=== PATIENT | female | born 1970 | race American Indian/Alaskan Native ===

== ENCOUNTER 2018-06-10 22:39 | Emergency (ER) | payer OTHER ==
[2018-06-10 23:05] VITALS: BP 109/41
--- NOTE | 2018-06-10 23:18 | EDM.PDOC ---
ED HPI GENERAL MEDICAL PROBLEM - General Chief Complaint: Wound Recheck Stated Complaint: SURGERY 1 WEEK AGO, [facility] [id number] Time Seen by Provider: 06/10/18 23:16 Source of Information: Reports: Patient History Limitations: Reports: No Limitations - History of Present Illness INITIAL COMMENTS - FREE TEXT/NARRATIVE: s/p GB surgery last week. doing well till today while vacuuming felt sharp pain in surg site. Treatments DORR OPERATOR: Reports: Acetaminophen, Other Medication(s) Upper Abdominal Pain Score (Numeric/FACES): 4 - Related Data Allergies Allergy/AdvReac Type Severity Reaction Status Date / Time omeprazole [From Prilosec] Allergy Headache Verified 06/10/18 23:00 omeprazole magnesium Allergy Headache Verified 06/10/18 23:00 [From Prilosec] EES Allergy Mild Nausea and Uncoded 06/10/18 23:00 Vomiting Home Meds: Home Meds Levothyroxine Sodium [Synthroid] 125 mcg PO DAILY 03/15/14 [History] Pantoprazole Sodium 40 mg PO BID 03/15/14 [History] Loratadine [Claritin] 10 mg PO DAILY 04/16/14 [History] Cholecalciferol (Vitamin D3) [Vitamin D3] 1,000 units PO DAILY 06/10/18 [History ] Past Medical History - Past Health History Medical/Surgical History: Denies Medical/Surgical History Respiratory History: Reports: Asthma Gastrointestinal History: Reports: GERD, Other (See Below) Other Gastrointestinal History: acid reflux, hx gallbladder problems Genitourinary History: Reports: None DESIGN INSERTER History: Reports: Other (See Below) Other DESIGN INSERTER History: hysterectomy Neurological History: Reports: Migraines Endocrine/Metabolic History: Reports: Obesity/BMI 30+ - Infectious Disease History Infectious Disease History: Reports: Mumps - Past Surgical History Musculoskeletal Surgical History: Reports: Knee Replacement Social & Family History - Family History Family Medical History: Noncontributory - Caffeine Use Caffeine Use: Reports: Coffee, Tea - Living Situation & Occupation Living situation: Reports: with Family Occupation: Employed ED ROS GENERAL - Review of Systems Review Of Systems: ROS reveals no pertinent complaints other than HPI. ED EXAM, SKIN/RASH Exam: See Below Exam Limited By: No Limitations General Appearance: Alert, WD/WN, Mild Distress, Other ([place]) Ears: Hearing Grossly Normal Throat/Mouth: Normal Voice, No Airway Compromise Head: Atraumatic Neck: Non-Tender, Full Range of Motion Respiratory/Chest: No Respiratory Distress Cardiovascular: Regular Rate, Rhythm GI/Abdominal: Tender, Abnormal Bowel Sounds, Other (RUQ tender, no discolouration, BS hyper.). No: Distended, Guarding, Rigid, Rebound Neurological: Alert, Oriented, Normal Cognition, Normal Gait, No Motor/Sensory Deficits Psychiatric: Normal Affect, Normal Mood Skin: Warm, Dry, Normal Color Location, Skin: Abdomen Course - Vital Signs Last Recorded V/S: Last Vital Signs Temp 36.7 C 06/10/18 23:02 Pulse 69 06/10/18 23:02 Resp 18 06/10/18 23:02 BP 109/41 L 06/10/18 23:02 Pulse Ox 98 06/10/18 23:02 - Orders/Labs/Meds Labs: Laboratory Tests 06/10/18 06/10/18 Range/Units 23:20 23:20 WBC 6.5 (5.0-10.0) 10^3/uL RBC 4.45 (4.2-5.4) 10^6/uL Hgb 14.1 (12.0-16.0) g/dL Hct 42.6 (37.0-47.0) % MCV 95.7 (80-100) fL MCH 31.7 (27.0-34.0) pg MCHC 33.1 (33.0-35.0) g/dL Plt Count 239 (150-450) 10^3/uL Neut % (Auto) 44.2 (42.2-75.2) % Lymph % (Auto) 35.0 (20.5-50.1) % [place] % (Auto) 13.6 H (2-8) % Eos % (Auto) 6.9 H (1.0-3.0) % Baso % (Auto) 0.3 (0.0-1.0) % Sodium 140 (135-145) mmol/L Potassium 4.1 (3.6-5.0) mmol/L Chloride 108 (101-111) mmol/L Carbon Dioxide 27.0 (21.0-31.0) mmol/L Anion Gap 9.1 BUN 19 H (7-18) mg/dL Creatinine 0.7 (0.6-1.3) mg/dL Est Cr Clr Drug Dosing 89.40 mL/min Estimated GFR (MDRD) > 60 BUN/Creatinine Ratio 27.14 Glucose 100 (74-105) mg/dL Calcium 9.1 (8.4-10.2) mg/dl Total Bilirubin 0.4 (0.2-1.0) mg/dL AST 19 (10-42) IU/L ALT 20 (10-60) IU/L Alkaline Phosphatase 81 (42-121) IU/L Total Protein 7.1 (6.7-8.2) g/dl Albumin 3.7 (3.2-5.5) g/dl Globulin 3.4 Albumin/Globulin Ratio 1.09 - Re-Assessments/Exams Free Text/Narrative Re-Assessment/Exam: 06/11/18 00:02 results discussed with pt who is feeling ok presently. Departure - Departure Time of Disposition: 00:02 Disposition: Home, Self-Care 01 Condition: Good Clinical Impression: Postoperative periumbilical abdominal pain - Discharge Information Forms: ED Department Discharge Additional Instructions: 1) rest 2) avoid bending lifting straining 3) recheck if there is any change or concern
[2018-06-10 23:55] LABS: ANION GAP 9.1; CHLORIDE,CL 108 mmol/L (101-111); SODIUM,NA 140 mmol/L (135-145)
== END 2018-06-11 00:33 | disposition home or self-care (01) ==
LOC: DL.ED 22:39
DX: G89.18 Other acute postprocedural pain (principal); R10.33 Periumbilical pain; J45.909 Unspecified asthma, uncomplicated; K21.9 Gastro-esophageal reflux disease without esophagitis; Z98.890 Other specified postprocedural states; Z88.8 Allergy status to other drugs, medicaments and biological substances; Z79.899 Other long term (current) drug therapy
CPT/HCPCS: 36415; 80053; 85025; 99283

== ENCOUNTER 2020-03-21 02:34 | Emergency (ER) | payer BC, OTHER ==
[2020-03-21] MEDS ORDERED: Ondansetron 4 MG Tab.DIS PO ONE (02:35)
[2020-03-21] MEDS: Sodium Chloride 0.9% 10 ML Syringe FLUSH PRN (03:03)
--- NOTE | 2020-03-21 03:05 | EDM.PDOC ---
ED HPI GENERAL MEDICAL PROBLEM - General Chief Complaint: General Stated Complaint: 100.4 TEMP, UNABLE TO HOLD ANYTHING DOWN Time Seen by Provider: 03/21/20 03:05 Source of Information: Reports: Patient, RN, RN Notes Reviewed History Limitations: Reports: No Limitations - History of Present Illness INITIAL COMMENTS - FREE TEXT/NARRATIVE: Patient presents to ER with complaint of diarrhea. Patient states on Wednesday she traveled to [place]. She states she did not get out of her vehicle and did drive-through for everything she needed to do. Patient states she ate at [employer] in [place], had a crispies chicken sandwich and a bottle of water. Patient states an hour after eating she states she began having cramping and abdominal pain, felt bloated and began having diarrhea. Patient has been nauseated but no vomiting. States she has tried to eat a salad and some crackers, but unable to eat, and everything goes right through her. Patient states she has used over -the-counter antidiarrheals, but was unable to swallow them as her throat was so dry. Patient admits to having the chills as well as fever. Denies headache , sore throat. Patient states she has had a cough and some allergies recently. Denies any recent illness and any recent antibiotic use. Onset: Sudden Onset Date: 03/26/20 Abdomen Pain Score (Numeric/FACES): 5 - Related Data Allergies Allergy/AdvReac Type Severity Reaction Status Date / Time omeprazole [From Prilosec] Allergy Headache Verified 03/21/20 02:55 omeprazole magnesium Allergy Headache Verified 03/21/20 02:55 [From Prilosec] EES Allergy Mild Nausea and Uncoded 03/21/20 02:55 Vomiting Home Meds: Home Meds Levothyroxine Sodium [Synthroid] 125 mcg PO DAILY 03/15/14 [History] Pantoprazole Sodium 40 mg PO BID 03/15/14 [History] Loratadine [Claritin] 10 mg PO DAILY 04/16/14 [History] Cholecalciferol (Vitamin D3) [Vitamin D3] 1,000 units PO DAILY 06/10/18 [History ] Past Medical History - Past Health History Medical/Surgical History: Denies Medical/Surgical History Respiratory History: Reports: Asthma Gastrointestinal History: Reports: GERD, Other (See Below) Other Gastrointestinal History: acid reflux, hx gallbladder problems Genitourinary History: Reports: None 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 (See Below) 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 CALIBRATION ENGINEER History: hysterectomy Neurological History: Reports: Migraines Endocrine/Metabolic History: Reports: Obesity/BMI 30+ - Infectious Disease History Infectious Disease History: Reports: Mumps - Past Surgical History Musculoskeletal Surgical History: Reports: Knee Replacement Social & Family History - Family History Family Medical History: Noncontributory - Tobacco Use Smoking Status *Q: Never Smoker Second Hand Smoke Exposure: No - Caffeine Use Caffeine Use: Reports: Coffee, Soda - Recreational Drug Use Recreational Drug Use: No - Living Situation & Occupation Living situation: Reports: with Family Occupation: Employed ED ROS GENERAL - Review of Systems Review Of Systems: Comprehensive ROS is negative, except as noted in HPI. ED EXAM, GENERAL - Physical Exam Exam: See Below Exam Limited By: No Limitations General Appearance: Alert, WD/WN, Moderate Distress Eye Exam: Bilateral Eye: EOMI, Normal Inspection Ears: Normal External Exam, Hearing Grossly Normal Nose: Normal Inspection Throat/Mouth: Normal Voice, No Airway Compromise, Other (Dry mucous membranes) Head: Atraumatic, Normocephalic Neck: Normal Inspection, Supple, Non-Tender, Full Range of Motion Respiratory/Chest: No Respiratory Distress, Lungs Clear, Normal Breath Sounds, No Accessory Muscle Use, Chest Non-Tender Cardiovascular: Normal Peripheral Pulses, Regular Rate, Rhythm, No Edema, No Gallop, No JVD, No Murmur, No Rub Peripheral Pulses: 2+: Radial (L), Radial (R) GI/Abdominal: Normal Bowel Sounds, Soft, No Organomegaly, No Distention, Tender (Generalized) (Female) Exam: Deferred Rectal (Female) Exam: Deferred Back Exam: Normal Inspection, Full Range of Motion, NT Extremities: Normal Inspection, Normal Range of Motion, Non-Tender, Normal Capillary Refill, No Pedal Edema Neurological: Alert, Oriented, CN II-XII Intact, Normal Cognition, Normal Gait, Normal Reflexes, No Motor/Sensory Deficits Psychiatric: Normal Affect, Normal Mood Skin Exam: Warm, Dry, Intact, Normal Color, No Rash Lymphatic: No Adenopathy Course - Vital Signs Last Recorded V/S: Last Vital Signs Temp 98.7 F 03/21/20 02:41 Pulse 101 H 03/21/20 02:41 Resp 19 03/21/20 02:41 BP 102/70 03/21/20 02:41 Pulse Ox 98 03/21/20 02:41 - Orders/Labs/Meds Orders: Active Orders 24 hr Category Date Time Status Peripheral IV Care [RC] . DIRECTED Care 03/21/20 03:04 Active Sodium Chloride 0.9% [Saline Flush] Med 03/21/20 03:03 Active 10 ml FLUSH ASDIRECTED PRN Peripheral IV Insertion Adult [OM.PC] Stat Oth 03/21/20 03:03 Ordered Medication Orders Sodium Chloride (Saline Flush) 10 ml FLUSH ASDIRECTED PRN PRN Reason: Keep Vein Open Last Admin: 03/21/20 03:03 Dose: 10 ml Labs: Laboratory Tests 03/21/20 03/21/20 03/21/20 Range/Units 02:39 03:03 03:03 WBC 7.2 (5.0-10.0) 10^3/uL RBC 4.91 (4.2-5.4) 10^6/uL Hgb 15.9 D (12.0-16.0) g/dL Hct 46.8 (37.0-47.0) % MCV 95.3 (80-100) fL MCH 32.4 (27.0-34.0) pg MCHC 34.0 (33.0-35.0) g/dL Plt Count 245 (150-450) 10^3/uL Neut % (Auto) 81.0 H (42.2-75.2) % Lymph % (Auto) 10.2 L (20.5-50.1) % [place] % (Auto) 7.8 (2-8) % Eos % (Auto) 0.7 L (1.0-3.0) % Baso % (Auto) 0.3 (0.0-1.0) % Sodium 138 (136-145) mmol/L Potassium 3.7 (3.5-5.1) mmol/L Chloride 103 (98-107) mmol/L Carbon Dioxide 26 (21-32) mmol/L Anion Gap 12.7 (7-13) mEq/L BUN 12 (7-18) mg/dL Creatinine 0.99 (0.55-1.02) mg/dL Est Cr Clr Drug Dosing 61.85 mL/min Estimated GFR (MDRD) 60 BUN/Creatinine Ratio 12.1 (No establ ref range) Glucose 101 H (74-99) mg/dL Calcium 7.9 L (8.5-10.1) mg/dL Total Bilirubin 0.3 (0.2-1.0) mg/dL AST 23 (15-37) U/L ALT 26 (14-59) U/L Alkaline Phosphatase 73 (46-116) U/L Total Protein 7.0 (6.4-8.2) g/dL Albumin 3.4 (3.4-5.0) g/dL Globulin 3.6 Albumin/Globulin Ratio 0.9 Urine Color Yellow (YELLOW) Urine Appearance Clear (CLEAR) Urine pH 5.5 (5.0-9.0) Ur Specific [place] >= 1.030 (1.005-1.030) Urine Protein Negative (NEGATIVE) Urine Glucose (UA) Negative (NEGATIVE) Urine Ketones 15 H (NEGATIVE) Urine Occult Blood Negative (NEGATIVE) Urine Nitrite Negative (NEGATIVE) Urine Bilirubin Negative (NEGATIVE) Urine Urobilinogen 0.2 (0.2-1.0) mg/dL Ur Leukocyte Esterase Negative (NEGATIVE) Meds: Medications Generic Name Dose Route Start Last Admin Trade Name Freq PRN Reason Stop Dose Admin Sodium Chloride 10 ml 03/21/20 03:03 03/21/20 03:03 Saline Flush FLUSH 10 ml ASDIRECTED PRN Administration Keep Vein Open Discontinued Medications Generic Name Dose Route Start Last Admin Trade Name Freq PRN Reason Stop Dose Admin Sodium Chloride 1,000 mls @ 999 mls/hr 03/21/20 03:05 03/21/20 03:14 Normal Saline IV 03/21/20 04:05 999 mls/hr .BOLUS ONE Administration Ondansetron HCl 4 mg 03/21/20 03:05 03/21/20 03:12 Zofran IV 03/21/20 03:06 4 mg ONETIME ONE Administration - Re-Assessments/Exams Free Text/Narrative Re-Assessment/Exam: 03/21/20 04:11 Patient states nausea and abdominal cramping is improved. Patient had 1 diarrhea stool while giving urine sample. Has not had any further stools since she has been here. Departure - Departure Time of Disposition: 04:12 Disposition: Home, Self-Care 01 Condition: Fair Clinical Impression: Gastroenteritis - Discharge Information *PRESCRIPTION DRUG MONITORING PROGRAM REVIEWED*: No *COPY OF PRESCRIPTION DRUG MONITORING REPORT IN PATIENT NICOLE: No Instructions: Viral Gastroenteritis, Adult, [id number], Food Choices to Help Relieve Diarrhea, Adult Forms: ED Department Discharge Additional Instructions: RX: Zofran Stay hydrated, drink plenty of water May use over the counter anti-diarrheal as directed Follow up with your primary care facility if diarrhea continues Sepsis Event Note - Evaluation Sepsis Screening Result: No Definite Risk - Focused Exam Vital Signs: Vital Signs Temp Pulse Resp BP Pulse Ox 03/21/20 02:41 98.7 F 101 H 19 102/70 98 Date Exam was Performed: 03/21/20 Time Exam was Performed: 04:11 - My Orders Last 24 Hours: My Active Orders 03/21/20 03:03 Sodium Chloride 0.9% [Saline Flush] 10 ml FLUSH ASDIRECTED PRN Peripheral IV Insertion Adult [OM.PC] Stat 03/21/20 03:04 Peripheral IV Care [RC] . DIRECTED - Assessment/Plan Last 24 Hours: My Active Orders 03/21/20 03:03 Sodium Chloride 0.9% [Saline Flush] 10 ml FLUSH ASDIRECTED PRN Peripheral IV Insertion Adult [OM.PC] Stat 03/21/20 03:04 Peripheral IV Care [RC] . DIRECTED
[2020-03-21] MEDS: Ondansetron 4 MG/2 ML SDV IV ONE (03:12)
[2020-03-21] MEDS: Sodium Chloride 0.9% 1,000 ML IV ONE (03:14)
[2020-03-21 03:37] LABS: ANION GAP 12.7 mEq/L (7-13)
[2020-03-21 04:15] VITALS: BP 117/70; PULSE 85
[2020-03-21] MEDS: Ondansetron 4 MG Tab.DIS ONE (04:16)
== END 2020-03-21 04:20 | disposition home or self-care (01) ==
LOC: DL.ED 02:34
DX: K52.9 Noninfective gastroenteritis and colitis, unspecified (principal); K21.9 Gastro-esophageal reflux disease without esophagitis; E66.9 Obesity, unspecified; Z91.048 Other nonmedicinal substance allergy status; Z79.899 Other long term (current) drug therapy; Z68.38 Body mass index [BMI] 38.0-38.9, adult
CPT/HCPCS: 36415; 80053; 81003; 85025; 96361; 96374; 99284; A9270; J2405; J7030

== ENCOUNTER 2020-12-25 20:45 | Emergency (ER) | payer BC, OTHER ==
[2020-12-25 21:15] VITALS: BP 117/61; PULSE 85
--- NOTE | 2020-12-25 21:44 | CR ---
PROCEDURE INFORMATION: Exam: XR Right Ankle Exam date and time: 12/25/2020 9:26 PM Age: 50 years old Clinical indication: Injury or trauma; Other: Rolled ankle; Sprain or strain; Right; Additional info: Rolled ankle at 2014 TECHNIQUE: Imaging protocol: XR Right ankle. Views: 3 or more views. COMPARISON: No relevant prior studies available. FINDINGS: Bones/joints: There is no evidence of acute fracture. There is no subluxation or dislocation. Talar dome smooth. Mortise preserved. There is a moderate spur at the plantar aponeurosis insertion upon the calcaneus. Soft tissues: Diffuse soft tissue swelling noted. IMPRESSION: There is no evidence of acute fracture.
--- NOTE | 2020-12-25 21:58 | EDM.PDOC ---
ED HPI GENERAL MEDICAL PROBLEM - General Chief Complaint: Lower Extremity Injury/Pain Stated Complaint: TWISTED RIGHT ANKLE Time Seen by Provider: 12/25/20 21:58 Source of Information: Reports: Patient, RN, RN Notes Reviewed History Limitations: Reports: No Limitations - History of Present Illness INITIAL COMMENTS - FREE TEXT/NARRATIVE: Patient presents to the ED via personal vehicle with complaints of right ankle pain. The patient reports she "rolled" her ankle inward while walking across her yard approximately two hours ago. She did not fall onto the joint and denies numbness or tingling distal to the pain. She voiced concerns regarding fracture or dislocation given the swelling to the lateral aspect of her ankle. She denies history of injury to the affected joint. She attest to pain with dorsi and plantar flexion but is able to perform both movements. She denies loss of sensory function to the extremity. The patient states she has not taken any pain medications for this problem. Right Ankle Pain Score (Numeric/FACES): 6 - Related Data Allergies Allergy/AdvReac Type Severity Reaction Status Date / Time omeprazole [From Prilosec] Allergy Headache Verified 12/25/20 21:15 omeprazole magnesium Allergy Headache Verified 12/25/20 21:15 [From Prilosec] EES Allergy Mild Nausea and Uncoded 12/25/20 21:15 Vomiting Home Meds: Home Meds Levothyroxine Sodium [Synthroid] 125 mcg PO DAILY 03/15/14 [History] Pantoprazole Sodium 40 mg PO BID 03/15/14 [History] Loratadine [Claritin] 10 mg PO DAILY 04/16/14 [History] Cholecalciferol (Vitamin D3) [Vitamin D3] 1,000 units PO DAILY 06/10/18 [History] Past Medical History - Past Health History Medical/Surgical History: Denies Medical/Surgical History Respiratory History: Reports: Asthma Gastrointestinal History: Reports: GERD, Other (See Below) Other Gastrointestinal History: acid reflux, hx gallbladder problems Genitourinary History: Reports: None MEDICAL LIAISON History: Reports: Other (See Below) Other MEDICAL LIAISON History: hysterectomy Neurological History: Reports: Migraines Endocrine/Metabolic History: Reports: Obesity/BMI 30+ - Infectious Disease History Infectious Disease History: Reports: Mumps - Past Surgical History GI Surgical History: Reports: Appendectomy, Cholecystectomy Female Surgical History: Reports: Hysterectomy Musculoskeletal Surgical History: Reports: Knee Replacement Other Musculoskeletal Surgeries/Procedures:: x2 Social & Family History - Family History Family Medical History: No Pertinent Family History - Tobacco Use Tobacco Use Status *Q: Never Tobacco User Second Hand Smoke Exposure: No - Caffeine Use Caffeine Use: Reports: Coffee, Soda - Recreational Drug Use Recreational Drug Use: No - Living Situation & Occupation Living situation: Reports: with Family Occupation: Employed Review of Systems - Review of Systems Review Of Systems: Comprehensive ROS is negative, except as noted in HPI. ED EXAM, GENERAL - Physical Exam Exam: See Below Exam Limited By: No Limitations General Appearance: Alert, No Apparent Distress Eye Exam: Bilateral Eye: EOMI, Normal Inspection, PERRL (3mm) Throat/Mouth: Normal Inspection, Normal Voice, No Airway Compromise Head: Atraumatic, Normocephalic Respiratory/Chest: No Respiratory Distress, Lungs Clear, Normal Breath Sounds, No Accessory Muscle Use, Chest Non-Tender Cardiovascular: Normal Peripheral Pulses, Regular Rate, Rhythm, No Edema, No Gallop, No JVD, No Murmur, No Rub Peripheral Pulses: 1+: Posterior Tibial (L), Posterior Tibial (R), 2+: Radial (L), Radial (R), Dorsalis Pedis (L), Dorsalis Pedis (R) Extremities: Normal Capillary Refill, Joint Swelling (To right lateral ankle), Leg Pain (To right lateral ankle), Limited Range of Motion (To right ankle; Pain with dorsiflexion and plantar flexion). No: Mottled, Pallor, Redness Neurological: Alert, Oriented, CN II-XII Intact, Normal Cognition, Normal Reflexes, No Motor/Sensory Deficits, Abnormal Gait (Limping gait d/t minimal weightbearing to RLE) Psychiatric: Normal Affect, Normal Mood Skin Exam: Warm, Dry, Intact, Ecchymosis (Faint to lateral aspect of right ankle), Increased Warmth (To right lateral ankle), Other (Swelling to right lateral ankle). No: Erythema, Jaundice, Mottled, Pallor, Petechiae Course - Vital Signs Last Recorded V/S: Last Vital Signs Temp 97.9 F 12/25/20 21:10 Pulse 85 12/25/20 21:10 Resp 18 12/25/20 21:10 BP 117/61 12/25/20 21:10 Pulse Ox 97 12/25/20 21:10 - Radiology Interpretation Free Text/Narrative:: [facility] [place] [facility] Final Radiology Report Call: [phone] assistance Online chat: [email or web address] Name: MARCO ORELLANA Age: 50Years F Date: 12/25/2020 SSN: -- : 1970 Study: CR ANKLE MIN 3V RT Requesting Physician: Bessie Willis Images: 3 Addl Studies: Provided Clinical History: rolled ankle at 2014 Contrast: Contrast Medium: Contrast Amount: Contrast Method: CONFIDENTIALITY STATEMENT This report is intended only for use by the referring physician, and only in accordance with law. If you received this in error, call [phone]. Page 1 of 1 PROCEDURE INFORMATION: Exam: XR Right Ankle Exam date and time: 12/25/2020 9:26 PM Age: 50 years old Clinical indication: Injury or trauma; Other: Rolled ankle; Sprain or strain; Right; Additional info: Rolled ankle at 2014 TECHNIQUE: Imaging protocol: XR Right ankle. Views: 3 or more views. COMPARISON: No relevant prior studies available. FINDINGS: Bones/joints: There is no evidence of acute fracture. There is no subluxation or dislocation. Talar dome smooth. Mortise preserved. There is a moderate spur at the plantar aponeurosis insertion upon the calcaneus. Soft tissues: Diffuse soft tissue swelling noted. IMPRESSION: There is no evidence of acute fracture. Thank you for allowing us to participate in the care of your patient. Dictated and Authenticated by: Cosme Pavon MD 12/25/2020 9:43 PM Central Time ([place] & [place]) - Re-Assessments/Exams Free Text/Narrative Re-Assessment/Exam: 12/25/20 Xray of ankle unremarkable for acute processes; no evidence of fracture or dislocation. Discussed findings of examination and imaging with patient. Discussed supportive cares as well as red flag signs and symptoms which would warrant reevaluation. Patient verbalized understanding and agreement with the plan of care. Departure - Departure Time of Disposition: 22:21 Disposition: Home, Self-Care 01 Condition: Good Clinical Impression: Bone spur of foot Ankle strain Qualifiers: Encounter type: initial encounter Laterality: right Qualified Code(s): S96.911A - Strain of unspecified muscle and tendon at ankle and foot level, right foot, initial encounter - Discharge Information *PRESCRIPTION DRUG MONITORING PROGRAM REVIEWED*: Not Applicable *COPY OF PRESCRIPTION DRUG MONITORING REPORT IN PATIENT NICOLE: Not Applicable Instructions: Muscle Strain, [id number] Referrals: Consuelo Chen, STEAM HAMMER OPERATOR [Primary Care Provider] - Forms: ED Department Discharge Additional Instructions: 1.) You may take ibuprofen (Advil/Motrin) 400mg ever six hours, as pain and swelling persist. You may also take acetaminophen (Tylenol) 650mg every six hours, as pain persists. You may stagger these medications so you are taking a dose every three hours. 2.) Apply ice to the affected area for comfort, as pain and swelling persist. 3.) Elevate the ankle for comfort to alleviate swelling. 4.) Follow up with your primary care provider if pain does not improve, or worsens, in the next 5-7 days. Sepsis Event Note (ED) - Evaluation Sepsis Screening Result: No Definite Risk - Focused Exam Vital Signs: Vital Signs Temp Pulse Resp BP Pulse Ox 12/25/20 21:10 97.9 F 85 18 117/61 97
== END 2020-12-25 22:35 | disposition home or self-care (01) ==
LOC: DL.ED 20:45
DX: S96.911A Strain of unspecified muscle and tendon at ankle and foot level, right foot, initial encounter (principal); M77.31 Calcaneal spur, right foot; J45.909 Unspecified asthma, uncomplicated; K21.9 Gastro-esophageal reflux disease without esophagitis; E66.9 Obesity, unspecified; Z88.8 Allergy status to other drugs, medicaments and biological substances; X58.XXXA Exposure to other specified factors, initial encounter
CPT/HCPCS: 73610-RT; 99283

== ENCOUNTER 2021-08-16 10:35 | Emergency (ER) | payer BC, OTHER ==
[2021-08-16 10:50] VITALS: BP 127/77; PULSE 99
--- NOTE | 2021-08-16 10:55 | EDM.PDOC ---
Scribed by Jeri Jordan 08/16/21 1055 for Petty Winslow MD ED HPI GENERAL MEDICAL PROBLEM - General Chief Complaint: Skin Complaint Stated Complaint: [id number] HAD SURGERY ON WEDNESDAY INSCION LEAKING Time Seen by Provider: 08/16/21 10:45 Source of Information: Reports: Patient, RN, RN Notes Reviewed History Limitations: Reports: No Limitations - History of Present Illness INITIAL COMMENTS - FREE TEXT/NARRATIVE: Patient is here for bleeding from her incision. She had a gastric bypass 5 days ago. She noted the procedure went well secondary to the Heparin that she was on. She is no longer on any blood thinner. She notes there is no more pain than normal or increased redness. She has started to have bloody discharge from her left incision. She was told if there are any changes to come to the ER, so she is here. Severity: Moderate - Related Data Allergies Allergy/AdvReac Type Severity Reaction Status Date / Time omeprazole [From Prilosec] Allergy Headache Verified 08/16/21 10:43 omeprazole magnesium Allergy Headache Verified 08/16/21 10:43 [From Prilosec] EES Allergy Mild Nausea and Uncoded 08/16/21 10:43 Vomiting Home Meds: Home Meds Levothyroxine Sodium [Synthroid] 125 mcg PO DAILY 03/15/14 [History] Pantoprazole Sodium 40 mg PO BID 03/15/14 [History] Loratadine [Claritin] 10 mg PO DAILY 04/16/14 [History] Cholecalciferol (Vitamin D3) [Vitamin D3] 1,000 units PO DAILY 06/10/18 [History] Past Medical History - Past Health History Medical/Surgical History: Denies Medical/Surgical History Respiratory History: Reports: Asthma Gastrointestinal History: Reports: GERD, Other (See Below) Other Gastrointestinal History: acid reflux, hx gallbladder problems Genitourinary History: Reports: None PAIN MANAGEMENT PHYSICIAN History: Reports: Other (See Below) Other PAIN MANAGEMENT PHYSICIAN History: hysterectomy Neurological History: Reports: Migraines Endocrine/Metabolic History: Reports: Obesity/BMI 30+ - Infectious Disease History Infectious Disease History: Reports: Mumps - Past Surgical History GI Surgical History: Reports: Appendectomy, Cholecystectomy Female Surgical History: Reports: Hysterectomy Musculoskeletal Surgical History: Reports: Knee Replacement Other Musculoskeletal Surgeries/Procedures:: x2 Social & Family History - Family History Family Medical History: No Pertinent Family History - Caffeine Use Caffeine Use: Reports: Coffee, Soda - Living Situation & Occupation Living situation: Reports: with Family Occupation: Employed ED ROS GENERAL - Review of Systems Review Of Systems: Comprehensive ROS is negative, except as noted in HPI. ED EXAM, SKIN/RASH Exam: See Below Exam Limited By: No Limitations General Appearance: Alert, WD/WN, No Apparent Distress Eye Exam: Bilateral Eye: EOMI, Normal Inspection, PERRL Ears: Normal External Exam, Normal Canal, Hearing Grossly Normal, Normal TMs Nose: Normal Inspection, Normal Mucosa, No Blood Throat/Mouth: Normal Inspection, Normal Lips, Normal Teeth, Normal Gums, Normal Oropharynx, Normal Voice, No Airway Compromise Head: Atraumatic, Normocephalic Neck: Normal Inspection, Supple, Non-Tender, Full Range of Motion Respiratory/Chest: No Respiratory Distress, Lungs Clear, Normal Breath Sounds, No Accessory Muscle Use, Chest Non-Tender Cardiovascular: Normal Peripheral Pulses, Regular Rate, Rhythm, No Edema, No Gallop, No JVD, No Murmur, No Rub GI/Abdominal: Soft, No Distention, Tender (to palpation over ecchymosis. ). No: Guarding, Rebound (Female) Exam: Deferred Rectal (Female) Exam: Deferred Back Exam: Normal Inspection, Full Range of Motion, NT Extremities: Normal Inspection Neurological: Alert, Oriented, CN II-XII Intact, Normal Cognition, Normal Gait, Normal Reflexes, No Motor/Sensory Deficits Psychiatric: Normal Affect, Normal Mood Skin: Other (surigcal incision healing well. Small area of bloody discharge on medial aspect of left upper quadrant incision. Stopped with 50 seconds of presure. ) ED SKIN PROCEDURES - Laceration/Wound Repair Left Upper Abdomen Appearance: Superficial Distal NVT: Neuro & Vascular Intact Closed with: Dermabond Lac/Wound length In cm: 1.5 Course - Vital Signs Last Recorded V/S: Last Vital Signs Temp 99.9 F 08/16/21 10:43 Pulse 99 08/16/21 10:43 Resp 16 08/16/21 10:43 BP 127/77 08/16/21 10:43 Pulse Ox 96 08/16/21 10:43 Departure - Departure Time of Disposition: 10:54 Disposition: Home, Self-Care 01 Condition: Good Clinical Impression: Postoperative bleeding from incision - Discharge Information *PRESCRIPTION DRUG MONITORING PROGRAM REVIEWED*: Not Applicable *COPY OF PRESCRIPTION DRUG MONITORING REPORT IN PATIENT NICOLE: Not Applicable Forms: ED Department Discharge Additional Instructions: If area becomes increasingly red or painful, return to ER. Sepsis Event Note (ED) - Focused Exam Vital Signs: Vital Signs Temp Pulse Resp BP Pulse Ox 08/16/21 10:43 99.9 F 99 16 127/77 96 I have read and agree with the documentation that has been completed regarding t his visit. By signing this record, I attest that the documentation was completed in my physical presence and is an accurate record of the encounter.
== END 2021-08-16 10:59 | disposition home or self-care (01) ==
LOC: DL.ED 10:35
DX: K91.840 Postprocedural hemorrhage of a digestive system organ or structure following a digestive system procedure (principal); S31.111A Laceration without foreign body of abdominal wall, left upper quadrant without penetration into peritoneal cavity, initial encounter; E66.9 Obesity, unspecified; Z88.1 Allergy status to other antibiotic agents; Z88.8 Allergy status to other drugs, medicaments and biological substances; Z90.49 Acquired absence of other specified parts of digestive tract; Z68.41 Body mass index [BMI] 40.0-44.9, adult; W26.8XXA Contact with other sharp object(s), not elsewhere classified, initial encounter
CPT/HCPCS: 12001; 99283-25

== ENCOUNTER 2021-09-12 19:50 | Emergency (ER) | payer BC, OTHER | END 2021-09-12 21:45 | disposition left against medical advice (07) | LOC: DL.ED 19:50 | DX: Z53.21 Procedure and treatment not carried out due to patient leaving prior to being seen by health care provider (principal) ==

== ENCOUNTER 2021-10-19 14:44 | Emergency (ER) | payer BC, OTHER | END 2021-10-19 15:11 | LOC: DL.ED 14:44 | DX: Z53.21 Procedure and treatment not carried out due to patient leaving prior to being seen by health care provider (principal) ==

== ENCOUNTER 2021-11-23 06:00 | Emergency (ER) | payer BC, OTHER ==
[2021-11-23 06:14] VITALS: BP 118/73
[2021-11-23] MEDS ORDERED: Morphine 2 MG/ML SYRINGE IVPUSH ONE (06:19)
[2021-11-23] MEDS ORDERED: Sodium Chloride 0.9% 1,000 ML IV ONE (06:19)
[2021-11-23] MEDS ORDERED: Ondansetron 4 MG/2 ML SDV IVPUSH ONE (06:32)
[2021-11-23] MEDS ORDERED: Ondansetron 4 MG/2 ML SDV ONE (06:33)
[2021-11-23 06:44] VITALS: PULSE 50
[2021-11-23 06:51] LABS: CHLORIDE,CL 108 mmol/L (98-107); SODIUM,NA 142 mmol/L (136-145)
[2021-11-23 07:22] LABS: AMPHETAMINES,URINE NEGATIVE (NEGATIVE); BARBITURATES,URINE NEGATIVE (NEGATIVE); BENZODIAZEPINE,URINE NEGATIVE (NEGATIVE); MDMA (ECSTASY), URINE NEGATIVE (NEGATIVE); METHADONE,URINE NEGATIVE (NEGATIVE); METHAMPHETAMINES,URINE NEGATIVE (NEGATIVE); OPIATES,URINE POSITIVE (NEGATIVE); OXYCODONE,URINE NEGATIVE (NEGATIVE); PHENCYCLIDINE,URINE NEGATIVE (NEGATIVE); TCA,URINE NEGATIVE (NEGATIVE)
== END 2021-11-23 08:04 | disposition home or self-care (01) ==
LOC: DL.ED 06:00
DX: N20.0 Calculus of kidney (principal); J45.909 Unspecified asthma, uncomplicated; K21.9 Gastro-esophageal reflux disease without esophagitis; E66.9 Obesity, unspecified; Z68.33 Body mass index [BMI] 33.0-33.9, adult; Z88.1 Allergy status to other antibiotic agents; Z88.8 Allergy status to other drugs, medicaments and biological substances; Z79.899 Other long term (current) drug therapy
CPT/HCPCS: 36415; 74176; 80053; 80305; 81001; 85025; 96374; 96375; 99284; J2270; J2405; J7030

== ENCOUNTER 2022-05-09 10:51 | Emergency (ER) | payer BC, OTHER ==
[2022-05-09 11:23] VITALS: BP 106/79; PULSE 67
[2022-05-09] MEDS ORDERED: Ketorolac 30 MG/ML SDV IM ONE (12:19)
[2022-05-09] MEDS ORDERED: Orphenadrine 60 MG/2 ML Inj IM ONE (12:19)
== END 2022-05-09 12:34 | disposition home or self-care (01) ==
LOC: DL.ED 10:51
DX: S46.911A Strain of unspecified muscle, fascia and tendon at shoulder and upper arm level, right arm, initial encounter (principal); K21.9 Gastro-esophageal reflux disease without esophagitis; E66.9 Obesity, unspecified; Z68.30 Body mass index [BMI] 30.0-30.9, adult; Z88.1 Allergy status to other antibiotic agents; Z88.8 Allergy status to other drugs, medicaments and biological substances; Z79.899 Other long term (current) drug therapy; Z90.49 Acquired absence of other specified parts of digestive tract; Z90.710 Acquired absence of both cervix and uterus; X50.0XXA Overexertion from strenuous movement or load, initial encounter
CPT/HCPCS: 73200; 96372; 99283; J1885; J2360

== ENCOUNTER 2023-05-26 05:15 | Emergency (ER) | payer BC, OTHER ==
[2023-05-26] MEDS ORDERED: Ketorolac 30 MG/ML SDV IVPUSH ONE (05:33)
[2023-05-26] MEDS ORDERED: Ondansetron 4 MG/2 ML SDV IVPUSH ONE (05:33)
[2023-05-26] MEDS ORDERED: Tamsulosin 0.4 MG Cap.ER PO ONE (05:34)
[2023-05-26 05:39] LABS: BASOPHILS PERCENT AUTO 0.4 % (0.0-1.0); HEMATOCRIT 44.5 % (37.0-47.0); HEMOGLOBIN 14.8 g/dL (12.0-16.0); LYMPHOCYTES PERCENT AUTO 43.5 % (20.5-50.1); MEAN CORPUSCULAR HEMOGLOBIN 31.8 pg (27.0-34.0); MEAN CORPUSCULAR HGB CONC 33.3 g/dL (33.0-35.0); MEAN CORPUSCULAR VOLUME 95.7 fL (80-100); MONOCYTES PERCENT AUTO 9.8 % (2-8); NEUTROPHILS PERCENT AUTO 41.3 % (42.2-75.2); PLATELET COUNT,PLT 242 10^3/uL (150-450); RED BLOOD CELL COUNT 4.65 10^6/uL (4.2-5.4); WHITE BLOOD CELL COUNT,WBC 5.2 10^3/uL (5.0-10.0)
[2023-05-26 05:50] VITALS: BP 136/110; PULSE 86
[2023-05-26 05:54] LABS: ALANINE AMINOTRANSFERASE,ALT 22 U/L (14-59); ALBUMIN 3.8 g/dL (3.4-5.0); ALKALINE PHOSPHATASE 90 U/L (46-116); ASPARTATE AMNIOTRANSFERASE,AST 19 U/L (15-37); BILIRUBIN TOTAL 0.4 mg/dL (0.2-1.0); BLOOD UREA NITROGEN,BUN 16 mg/dL (7-18); BUN/CREATININE RATIO 16.3 (No establ ref range); CALCIUM 9.6 mg/dL (8.5-10.1); CARBON DIOXIDE,CO2 31 mmol/L (21-32); CHLORIDE,CL 104 mmol/L (98-107); CREATININE 0.98 mg/dL (0.55-1.02); EST CRCL DRUG DOSING (CG) 62.86 mL/min; GLUCOSE RANDOM 96 mg/dL (70-99); LIPASE 123 U/L (73-393); PROTEIN TOTAL,TP 7.5 g/dL (6.4-8.2); SODIUM,NA 143 mmol/L (136-145)
[2023-05-26 06:02] LABS: C-REACTIVE PROTEIN < 0.2 mg/dL (0.0-0.9); ESTIMATED GFR 69 mL/min (>=60); ETHANOL BLOOD MEDICAL < 3 mg/dL (0)
[2023-05-26] MEDS ORDERED: Sodium Chloride 0.9% 1,000 ML IV ONE (06:08)
[2023-05-26 06:43] LABS: APPEARANCE,URINE CLEAR (CLEAR); BILIRUBIN,URINE NEGATIVE (NEGATIVE); COLOR,URINE YELLOW (YELLOW); GLUCOSE,URINE NEGATIVE (NEGATIVE); KETONES,URINE NEGATIVE (NEGATIVE); LEUKOCYTE ESTERASE,URINE NEGATIVE (NEGATIVE); NITRITE,URINE NEGATIVE (NEGATIVE); OCCULT BLOOD,URINE SMALL (NEGATIVE); PH,URINE 5.5 (5.0-9.0); PROTEIN,URINE NEGATIVE (NEGATIVE); UROBILINOGEN,URINE 0.2 mg/dL (0.2-1.0)
[2023-05-26 06:48] LABS: AMPHETAMINES,URINE NEGATIVE (NEGATIVE); BARBITURATES,URINE NEGATIVE (NEGATIVE); BENZODIAZEPINE,URINE NEGATIVE (NEGATIVE); MDMA (ECSTASY), URINE NEGATIVE (NEGATIVE); METHADONE,URINE NEGATIVE (NEGATIVE); METHAMPHETAMINES,URINE NEGATIVE (NEGATIVE); OPIATES,URINE NEGATIVE (NEGATIVE); OXYCODONE,URINE NEGATIVE (NEGATIVE); PHENCYCLIDINE,URINE NEGATIVE (NEGATIVE); TCA,URINE NEGATIVE (NEGATIVE)
[2023-05-26 06:51] LABS: AMORPHOUS SEDIMENT,URINE FEW /HPF (NOT SEEN); BACTERIA,URINE RARE /HPF (0-FEW/HPF); EPITHELIAL CELLS,URINE MODERATE /HPF (NOT SEEN); MUCUS,URINE MODERATE /LPF (NOT SEEN); WBC,URINE 0-5 /HPF (0-5/HPF)
[2023-05-26 06:52] LABS: CALCIUM OXALATE CRYSTALS,URINE FEW /HPF (NOT SEEN)
== END 2023-05-26 07:13 | disposition home or self-care (01) ==
LOC: DL.ED 05:15
DX: N20.0 Calculus of kidney (principal); J45.909 Unspecified asthma, uncomplicated; K21.9 Gastro-esophageal reflux disease without esophagitis; E66.9 Obesity, unspecified; Z88.1 Allergy status to other antibiotic agents; Z88.8 Allergy status to other drugs, medicaments and biological substances; Z79.899 Other long term (current) drug therapy; Z68.31 Body mass index [BMI] 31.0-31.9, adult
CPT/HCPCS: 36415; 80053; 80305-QW; 80307; 81001; 83605; 83690; 85025; 86140; 96374; 96375; 99284; 99284-25; A9270-GY; J1885; J2405; J7030

== ENCOUNTER 2023-07-28 07:38 | Day surgery (SDC) | payer BC, OTHER ==
[2023-07-28] MEDS ORDERED: Tropicamide 1% Ophth Soln 15 ML Bottle EYELF ONE (08:30)
[2023-07-28] MEDS ORDERED: Phenylephrine 10% Ophth Soln 5 ML Bot EYELF PRN (08:30)
[2023-07-28] MEDS ORDERED: Cataract Ophth Solution EYELF ONE (08:30)
[2023-07-28] MEDS ORDERED: Povidone-Iodine 5% Sterile Ophth Soln 30 ML Bottle EYELF ONE ×2 (08:30→09:02)
[2023-07-28] MEDS ORDERED: Proparacaine 0.5% Ophth Soln 15 ML Bottle EYELF ONE ×2 (08:30→09:02)
[2023-07-28] MEDS ORDERED: Moxifloxacin 0.5% Ophth Soln 3 ML Bottle EYELF ONE (08:30)
[2023-07-28] MEDS ORDERED: Timolol Maleate 0.5% Ophth Soln 5 ML Bottle EYELF ONE (08:30)
[2023-07-28] MEDS ORDERED: Vancomycin 500 MG SDV EYELF ONE (09:02)
[2023-07-28] MEDS ORDERED: Apraclonidine 0.5% Ophth Soln 5 ML Bot EYELF ONE (09:02)
[2023-07-28] MEDS ORDERED: Balanced Salt Solution Ophth Irrig 500 ML Bottle IOCULAR ONE (09:02)
[2023-07-28] MEDS ORDERED: Diclofenac Sodium 0.1% Ophth Soln 5 ML Bottle EYELF ONE (09:02)
[2023-07-28] MEDS ORDERED: Lidocaine 1% 30 ML SDV INJECT ONE (09:02)
[2023-07-28] MEDS ORDERED: Chondroitin Sulfate/Hyaluronate Sodium Ophth Inj 0.75 ML Syringe EYELF ONE (09:02)
[2023-07-28] MEDS ORDERED: Tobramycin 0.3% Ophth Oint 3.5 GM Tube EYELF ONE (09:02)
[2023-07-28] MEDS ORDERED: Acetaminophen/Codeine 300-30 MG Tab PO PRN (09:30)
[2023-07-28] MEDS ORDERED: Ondansetron 4 MG/2 ML SDV IVPUSH PRN (09:30)
[2023-07-28] MEDS ORDERED: Acetaminophen 325 MG Tab PO PRN (09:30)
[2023-07-28 10:26] VITALS: BP 98/60; PULSE 47
== END 2023-07-28 10:05 | disposition home or self-care (01) ==
LOC: DL.SDS 07:38
PROVIDERS: ATTEND Ophthalmology
DX: H25.813 Combined forms of age-related cataract, bilateral (principal); E03.9 Hypothyroidism, unspecified; E16.2 Hypoglycemia, unspecified; K21.9 Gastro-esophageal reflux disease without esophagitis; Z98.84 Bariatric surgery status; Z88.8 Allergy status to other drugs, medicaments and biological substances
CPT/HCPCS: 66984; A9270; J3370; J3490

== ENCOUNTER → 2023-08-11 | Day surgery (SDC) | payer BC, OTHER ==
[~2023-08-11] MED LIST: Acetaminophen 325 MG Tab PO PRN; Acetaminophen/Codeine 300-30 MG Tab PO PRN; Apraclonidine 0.5% Ophth Soln 5 ML Bot EYERT ONE; Balanced Salt Solution Ophth Irrig 500 ML Bottle IOCULAR ONE; Cataract Ophth Solution EYERT ONE; Chondroitin Sulfate/Hyaluronate Sodium Ophth Inj 0.75 ML Syringe EYERT ONE; Dexamethasone/Neomycin/Polymyxin B Ophth Oint 3.5 GM Tube EYERT ONE; Diclofenac Sodium 0.1% Ophth Soln 5 ML Bottle EYERT ONE; Lidocaine 1% 30 ML SDV ONE; Moxifloxacin 0.5% Ophth Soln 3 ML Bottle EYERT ONE; Ondansetron 4 MG/2 ML SDV IVPUSH PRN; Phenylephrine 10% Ophth Soln 5 ML Bot EYERT PRN; Povidone-Iodine 5% Sterile Ophth Soln 30 ML Bottle EYERT ONE; Proparacaine 0.5% Ophth Soln 15 ML Bottle EYERT ONE; Timolol Maleate 0.5% Ophth Soln 5 ML Bottle EYERT ONE; Tropicamide 1% Ophth Soln 15 ML Bottle EYERT ONE; Vancomycin 500 MG SDV EYERT ONE
[2023-08-11 12:32] VITALS: BP 123/79; PULSE 64
== END | disposition home or self-care (01) ==
LOC: DL.SDS 09:23
PROVIDERS: ATTEND Ophthalmology
DX: H25.811 Combined forms of age-related cataract, right eye (principal); E03.9 Hypothyroidism, unspecified; K21.9 Gastro-esophageal reflux disease without esophagitis; E66.9 Obesity, unspecified; Z68.31 Body mass index [BMI] 31.0-31.9, adult; Z79.890 Hormone replacement therapy; Z79.899 Other long term (current) drug therapy; Z88.8 Allergy status to other drugs, medicaments and biological substances
CPT/HCPCS: A9270-GY; J3370; J3490; V2788

== ENCOUNTER 2024-02-04 21:46 | Emergency (ER) | payer BC, OTHER ==
[2024-02-05 01:21] LABS: CORONAVIRUS COVID-19 NAA NEGATIVE (NEGATIVE); INFLUENZA A NAA NEGATIVE (NEGATIVE); INFLUENZA B NAA NEGATIVE (NEGATIVE); RESPIRATORY SYNCYTIAL VIR NAA NEGATIVE (NEGATIVE)
[2024-02-05 01:42] VITALS: BP 138/100; PULSE 64
== END 2024-02-05 01:42 | disposition home or self-care (01) ==
LOC: DL.ED 21:46
DX: J06.9 Acute upper respiratory infection, unspecified (principal); J45.909 Unspecified asthma, uncomplicated; E03.9 Hypothyroidism, unspecified; Z88.1 Allergy status to other antibiotic agents; Z88.8 Allergy status to other drugs, medicaments and biological substances; Z79.899 Other long term (current) drug therapy; Z86.16 Personal history of COVID-19; Z90.49 Acquired absence of other specified parts of digestive tract; Z90.710 Acquired absence of both cervix and uterus; Z87.891 Personal history of nicotine dependence
CPT/HCPCS: 0241U; 87081; 87430; 99283

== ENCOUNTER 2024-05-08 10:07 | Emergency (ER) | payer BC, OTHER ==
[2024-05-08 10:23] LABS: BASOPHILS PERCENT AUTO 0.1 % (0.0-1.0); EOSINOPHILS PERCENT AUTO 0.1 % (1.0-3.0); HEMATOCRIT 45.7 % (37.0-47.0); HEMOGLOBIN 15.1 g/dL (12.0-16.0); LYMPHOCYTES PERCENT AUTO 18.1 % (20.5-50.1); MEAN CORPUSCULAR HEMOGLOBIN 31.6 pg (27.0-34.0); MEAN CORPUSCULAR VOLUME 95.6 fL (80-100); MONOCYTES PERCENT AUTO 8.8 % (2-8); NEUTROPHILS PERCENT AUTO 72.9 % (42.2-75.2); PLATELET COUNT,PLT 262 10^3/uL (150-450); RED BLOOD CELL COUNT 4.78 10^6/uL (4.2-5.4); WHITE BLOOD CELL COUNT,WBC 7.9 10^3/uL (5.0-10.0)
[2024-05-08 10:24] VITALS: BP 145/79; PULSE 44
[2024-05-08] MEDS: Sodium Chloride 0.9% 1,000 ML IV ONE (10:28)
[2024-05-08] MEDS: Aspirin 81 MG Tab.Chew PO ONE (10:28)
[2024-05-08 11:02] LABS: APPEARANCE,URINE CLEAR (CLEAR); BILIRUBIN,URINE NEGATIVE (NEGATIVE); COLOR,URINE YELLOW (YELLOW); GLUCOSE,URINE NEGATIVE (NEGATIVE); KETONES,URINE NEGATIVE (NEGATIVE); LEUKOCYTE ESTERASE,URINE NEGATIVE (NEGATIVE); NITRITE,URINE NEGATIVE (NEGATIVE); OCCULT BLOOD,URINE NEGATIVE (NEGATIVE); PROTEIN,URINE NEGATIVE (NEGATIVE); UROBILINOGEN,URINE 0.2 mg/dL (0.2-1.0)
[2024-05-08 11:09] LABS: ALANINE AMINOTRANSFERASE,ALT 35 U/L (14-59); ALBUMIN 3.6 g/dL (3.4-5.0); ALKALINE PHOSPHATASE 71 U/L (46-116); ANION GAP 9.7 mEq/L (7-13); ASPARTATE AMNIOTRANSFERASE,AST 17 U/L (15-37); BILIRUBIN TOTAL 0.3 mg/dL (0.2-1.0); BLOOD UREA NITROGEN,BUN 13 mg/dL (7-18); BUN/CREATININE RATIO 13.8 (No establ ref range); CALCIUM 9.3 mg/dL (8.5-10.1); CARBON DIOXIDE,CO2 30 mmol/L (21-32); CHLORIDE,CL 103 mmol/L (98-107); CREATININE 0.94 mg/dL (0.55-1.02); ESTIMATED GFR 73 mL/min (>=60); ETHANOL BLOOD MEDICAL < 3 mg/dL (0); GLUCOSE RANDOM 105 mg/dL (70-99); LIPASE 38 U/L (16-77); MAGNESIUM 2.2 mg/dL (1.8-2.4); POTASSIUM,K 3.7 mmol/L (3.5-5.1); PROTEIN TOTAL,TP 7.3 g/dL (6.4-8.2); SODIUM,NA 139 mmol/L (136-145); TSH ULTRASENSITIVE 0.35 uIU/mL (0.36-3.74)
[2024-05-08] MEDS: Atropine 0.4 MG/ML SDV IVPUSH ONE (11:36)
== END 2024-05-08 12:05 ==
LOC: DL.ED 10:07
DX: R07.2 Precordial pain (principal); E86.0 Dehydration; R00.1 Bradycardia, unspecified; E03.9 Hypothyroidism, unspecified; Z79.899 Other long term (current) drug therapy; Z88.1 Allergy status to other antibiotic agents; Z88.8 Allergy status to other drugs, medicaments and biological substances; Z86.16 Personal history of COVID-19
CPT/HCPCS: 36415; 71045; 80053; 80307; 81003; 82947; 83690; 83735; 84443; 84484; 85025; 85379; 93005; 96361; 96374; 99285; A9270; J0461; J7030; 93010

== ENCOUNTER 2024-09-04 09:38 | Emergency (ER) | payer BC, OTHER ==
[2024-09-04] MEDS: Sodium Chloride 0.9% 1,000 ML IV ONE (10:16)
[2024-09-04 10:27] LABS: BASOPHILS PERCENT AUTO 0.1 % (0.0-1.0); HEMATOCRIT 41.8 % (37.0-47.0); HEMOGLOBIN 13.8 g/dL (12.0-16.0); LYMPHOCYTES PERCENT AUTO 7.9 % (20.5-50.1); MONOCYTES PERCENT AUTO 5.4 % (2-8); NEUTROPHILS PERCENT AUTO 86.6 % (42.2-75.2); PLATELET COUNT,PLT 271 10^3/uL (150-450); RED BLOOD CELL COUNT 4.31 10^6/uL (4.2-5.4); WHITE BLOOD CELL COUNT,WBC 10.3 10^3/uL (5.0-10.0)
[2024-09-04 10:29] LABS: APPEARANCE,URINE CLEAR (CLEAR); BILIRUBIN,URINE NEGATIVE (NEGATIVE); COLOR,URINE YELLOW (YELLOW); GLUCOSE,URINE NEGATIVE (NEGATIVE); KETONES,URINE NEGATIVE (NEGATIVE); LEUKOCYTE ESTERASE,URINE NEGATIVE (NEGATIVE); NITRITE,URINE NEGATIVE (NEGATIVE); OCCULT BLOOD,URINE NEGATIVE (NEGATIVE); PROTEIN,URINE NEGATIVE (NEGATIVE); UROBILINOGEN,URINE 0.2 mg/dL (0.2-1.0)
[2024-09-04 10:49] LABS: LACTIC ACID 0.8 mmol/L (0.4-2.0)
[2024-09-04 10:55] LABS: A/G RATIO 1.1; ALANINE AMINOTRANSFERASE,ALT 31 U/L (14-59); ALBUMIN 3.7 g/dL (3.4-5.0); ALKALINE PHOSPHATASE 74 U/L (46-116); ANION GAP 8.6 mEq/L (7-13); ASPARTATE AMNIOTRANSFERASE,AST 17 U/L (15-37); BILIRUBIN TOTAL 0.3 mg/dL (0.2-1.0); BLOOD UREA NITROGEN,BUN 17 mg/dL (7-18); BUN/CREATININE RATIO 18.1 (No establ ref range); CALCIUM 9.6 mg/dL (8.5-10.1); CARBON DIOXIDE,CO2 30 mmol/L (21-32); CHLORIDE,CL 104 mmol/L (98-107); CREATININE 0.94 mg/dL (0.55-1.02); ESTIMATED GFR 72 mL/min (>=60); GLUCOSE RANDOM 114 mg/dL (70-99); MAGNESIUM 2.4 mg/dL (1.8-2.4); POTASSIUM,K 3.6 mmol/L (3.5-5.1); SODIUM,NA 139 mmol/L (136-145); TSH ULTRASENSITIVE 0.23 uIU/mL (0.36-3.74)
[2024-09-04 12:01] VITALS: BP 113/43; PULSE 49
== END 2024-09-04 12:01 | disposition home or self-care (01) ==
LOC: DL.ED 09:38
DX: R50.9 Fever, unspecified (principal); R00.1 Bradycardia, unspecified; Z86.16 Personal history of COVID-19; E03.9 Hypothyroidism, unspecified; Z79.890 Hormone replacement therapy; Z90.49 Acquired absence of other specified parts of digestive tract; Z90.710 Acquired absence of both cervix and uterus; Z79.899 Other long term (current) drug therapy; Z88.8 Allergy status to other drugs, medicaments and biological substances; Z88.1 Allergy status to other antibiotic agents
CPT/HCPCS: 36415; 71045; 80053; 81003; 83605; 83735; 84439; 84443; 84484; 85025; 87040; 87428; 93005; 93010; 96360; 96361; 99284; 99285; J7030

== ENCOUNTER 2025-08-19 15:07 | Emergency (ER) | payer BC, OTHER ==
[2025-08-19 15:20] LABS: APPEARANCE,URINE CLOUDY (CLEAR); GLUCOSE,URINE 100 (NEGATIVE); OCCULT BLOOD,URINE MODERATE (NEGATIVE)
[2025-08-19 15:23] VITALS: BP 117/76; PULSE 113
[2025-08-19] MEDS: Take Home: Phenazopyridine 95 MG Tab, 4 Tab Pack PO ONE (15:27)
[2025-08-19] MEDS: Ondansetron 4 MG Tab.DIS PO ONE (15:27)
[2025-08-19] MEDS: Take Home: Ondansetron 4 MG Tab.DIS, 5 Tab Pack PO ONE (15:27)
[2025-08-19 15:30] LABS: EPITHELIAL CELLS,URINE FEW /HPF (NOT SEEN)
[2025-08-19] MEDS: cefTRIAXone 1 GM, Lidocaine 1% 2.1 ML IM ONE (15:33)
== END 2025-08-19 15:44 | disposition home or self-care (01) ==
LOC: DL.ED 15:07
DX: N30.00 Acute cystitis without hematuria (principal); J45.909 Unspecified asthma, uncomplicated; E03.9 Hypothyroidism, unspecified; Z86.16 Personal history of COVID-19; Z90.49 Acquired absence of other specified parts of digestive tract; Z90.710 Acquired absence of both cervix and uterus; Z88.1 Allergy status to other antibiotic agents; Z88.8 Allergy status to other drugs, medicaments and biological substances; Z79.890 Hormone replacement therapy; Z79.899 Other long term (current) drug therapy
CPT/HCPCS: 81001; 87086; 87088; 87186; 96372; 99284; A9270; J0696; J2003; Q0162